=== PATIENT | male | born 1950 | race Caucasian/White ===

== ENCOUNTER 2023-08-29 14:42 | Emergency (ER) | payer MEDICARE, BC ==
[2023-08-29 15:03] VITALS: TEMP 97.7
[2023-08-29] MEDS ORDERED: PROTONIX 40 MG IV IV ONE (15:06)
[2023-08-29] MEDS ORDERED: Sodium Chloride 0.9% 1000 ML 1,000 ML ONE ×2 (15:06→17:47)
[2023-08-29] MEDS ORDERED: Zofran 4 MG/2 ML VIAL ONE (15:06)
[2023-08-29] MEDS: Zofran 4 MG/2 ML VIAL IV ONE (15:11)
[2023-08-29] MEDS: PROTONIX 40 MG IV IV ONE (15:11)
[2023-08-29] MEDS: Sodium Chloride 0.9% 1000 ML 1,000 ML IV STA ×2 (15:11→17:47)
--- NOTE | 2023-08-29 15:13 | ERPHSYRPT ---
- History of Present Illness Time Seen by Provider: 08/29/23 15:00 Historian: patient Exam Limitations: no limitations Patient Subjective Stated Complaint: C/O vomiting since 4am today. Denies pain or diarrhea. Triage Nursing Assessment: Patient ambulated back to ER without difficulties. Patient noted to have labored breathing. No cough. Face is flushed. JOYCE WNL. He is alert and oriented. Physician History: The patient presents with a sudden onset of nausea and vomiting, which started at 4 o'clock. He reports having dry heaves for about ten minutes initially, and since then, he has vomited seven times. The patient has not eaten since dinner and the vomitus mainly consists of sips of water and a little bit of norberto oliver he consumed. He also noticed white things in his vomit during the second to last episode, which he has not been able to identify. The patient reports feeling better when he takes a deep breath. He denies any chest pain. The patient has a history of prediabetes and is on medication for cholesterol. He has had surgeries for ventral hernias and appendectomy in the past. He denies any abdominal pain but reports feeling extremely nauseated. Allergies/Adverse Reactions: ampicillin Allergy (Verified 08/29/23 14:47) Home Medications: Atorvastatin Calcium 10 mg PO DAILY 08/29/23 [History] Vortioxetine Hydrobromide [Trintellix] 200 mg PO DAILY 08/29/23 [History] Hx Tetanus, Diphtheria Vaccination/Date Given: Yes Hx Influenza Vaccination/Date Given: Yes Hx Pneumococcal Vaccination/Date Given: Yes Immunizations Up to Date: Yes Travel Risk - International Travel Have you traveled outside of the country in past 3 weeks: No - Emerging Infectious Disease Are you exhibiting symptoms associated with any current EIDs: Yes Symptoms: Vomitting - Review of Systems All Other Systems: Reviewed and Negative - Past Medical History Pertinent Past Medical History: Yes Cardiac History: High Cholesterol GI Medical History: Hernia Psycho-Social History: Depression Other Medical History: skin CA - Past Surgical History Past Surgical History: Yes Gastrointestinal: Appendectomy, Hernia Repair Other Surgical History: right knee X 2 - Social History Smoking Status: Never smoker Exposure to second hand smoke: No Drug Use: marijuana - Social Determinants of Health Will the patient participate in the screening: Declined to provide - Nursing Vital Signs Nursing Vital Signs: Initial Vital Signs Pulse Rate 64 08/29/23 14:48 Respiratory Rate 21 08/29/23 14:48 Blood Pressure 162/78 08/29/23 14:48 O2 Sat by Pulse Oximetry 100 08/29/23 14:48 Pain Scale Pain Intensity 0 - Physical Exam General Appearance: mild distress Eye Exam: eyes nml inspection Ears, Nose, Throat Exam: normal ENT inspection Neck Exam: normal inspection, supple, full range of motion Respiratory Exam: normal breath sounds, lungs clear, other (labored breathing) Cardiovascular Exam: regular rate/rhythm, normal heart sounds, capillary refill <2 sec, No edema Gastrointestinal/Abdomen Exam: soft, normal bowel sounds, tenderness (LLQ), distention, No mass, No guarding, No rebound Neurologic Exam: alert, oriented x 3, cooperative Skin Exam: normal color, warm, diaphoresis SpO2 Interpretation: normal SpO2: 100 O2 Delivery: Room Air - Course Nursing assessment & vital signs reviewed: Yes EKG Interpreted by Me: RATE (58), Sinus Rhythm, NORMAL AXIS, NORMAL INTERVALS, prolonged QT interval (QT 450), NORMAL ST-T Ordered Tests: Active Orders 24 hr Category Date Time Status EKG-ER Only STAT Care 08/29/23 15:01 Active IV Insertion STAT Care 08/29/23 15:01 Active ABDOMEN AND PELVIS W CONTRAST [CT] Stat Exams 08/29/23 15:02 Completed CHEST 1 VIEW (PORTABLE) Stat Exams 08/29/23 15:03 Completed BLOOD CULTURE Stat Lab 08/29/23 16:04 Received CBC W DIFF Stat Lab 08/29/23 15:10 Completed CMP Stat Lab 08/29/23 15:10 Completed Erythrocyte Sedimentation Rate Stat Lab 08/29/23 15:10 Completed LIPASE Stat Lab 08/29/23 15:10 Completed Lactic Acid Stat Lab 08/29/23 15:01 Completed Lactic Acid Stat Lab 08/29/23 17:17 Completed OB-FECAL SCREEN Stat Lab 08/29/23 Ordered TROPONIN Q4H Lab 08/29/23 15:10 Completed TROPONIN Q4H Lab 08/29/23 17:50 Completed TROPONIN Q4H Lab 08/29/23 23:15 Ordered TSH, 3RD Generation Stat Lab 08/29/23 15:10 Completed UA W/RFX UR CULTURE Stat Lab 08/29/23 17:06 Completed VENOUS BLOOD GAS Stat Lab 08/29/23 17:52 Completed Medication Summary Generic Name Dose Route Start Last Admin Trade Name Jose PRN Reason Stop Dose Admin Sodium Chloride 1,000 mls @ 999 mls/hr 08/29/23 17:45 08/29/23 17:47 Sodium Chloride 0.9% 1000 Ml IV 08/29/23 18:45 999 mls/hr .Q1H1M STA Administration Discontinued Medications Generic Name Dose Route Start Last Admin Trade Name Jose PRN Reason Stop Dose Admin Droperidol 1.25 mg 08/29/23 15:48 08/29/23 15:51 Droperidol 5 Mg/2 Ml Vial IV 08/29/23 15:49 1.25 mg STAT ONE Administration Droperidol Confirm 08/29/23 15:49 Droperidol 5 Mg/2 Ml Vial Administered 08/29/23 15:50 Dose 5 mg .ROUTE .STK-MED ONE Sodium Chloride 1,000 mls @ 999 mls/hr 08/29/23 15:01 08/29/23 16:13 Sodium Chloride 0.9% 1000 Ml IV 08/29/23 16:01 Infused .Q1H1M STA Infusion Sodium Chloride Confirm 08/29/23 15:06 Sodium Chloride 0.9% 1000 Ml Administered 08/29/23 15:07 Dose 1,000 mls @ ud .ROUTE .STK-MED ONE Metronidazole 500 mg in 100 mls @ 200 mls/hr 08/29/23 15:04 08/29/23 16:25 Flagyl 500 Mg Ivpb IV 08/29/23 15:33 Infused STAT STA Infusion Levofloxacin/Dextrose 750 mg in 150 mls @ 100 mls/hr 08/29/23 15:06 08/29/23 17:25 Levofloxacin 750mg/150ml D5w IV 08/29/23 16:35 Infused STAT STA Infusion Metronidazole Confirm 08/29/23 15:42 Flagyl 500 Mg Ivpb Administered 08/29/23 15:43 Dose 500 mg in 100 mls @ ud IV .STK-MED ONE Levofloxacin/Dextrose Confirm 08/29/23 15:42 Levofloxacin 750mg/150ml D5w Administered 08/29/23 15:43 Dose 750 mg in 150 mls @ ud IV .STK-MED ONE Sodium Chloride Confirm 08/29/23 17:47 Sodium Chloride 0.9% 1000 Ml Administered 08/29/23 17:48 Dose 1,000 mls @ ud .ROUTE .STK-MED ONE Ondansetron HCl 4 mg 08/29/23 15:01 08/29/23 15:11 Ondansetron Hcl 4 Mg/2 Ml Vial IV 08/29/23 15:02 4 mg STAT ONE Administration Ondansetron HCl Confirm 08/29/23 15:06 Ondansetron Hcl 4 Mg/2 Ml Vial Administered 08/29/23 15:07 Dose 4 mg .ROUTE .STK-MED ONE Pantoprazole Sodium 40 mg 08/29/23 15:01 08/29/23 15:11 Pantoprazole 40 Mg Vial IV 08/29/23 15:02 40 mg STAT ONE Administration Pantoprazole Sodium Confirm 08/29/23 15:06 Pantoprazole 40 Mg Vial Administered 08/29/23 15:07 Dose 40 mg IV .STK-MED ONE Lab/Rad Data: Laboratory Result Diagrams 08/29/23 15:10 08/29/23 15:10 Laboratory Results 08/29/23 08/29/23 08/29/23 Range/Units 17:52 17:50 17:17 WBC (4.23-9.07) x10^3/uL RBC (4.63-6.08) x10^6/uL Hgb (13.7-17.5) g/dL Hct (40.1-51.0) % MCV (79.0-92.2) fL MCH (25.7-32.2) pg MCHC (32.3-36.5) g/dL RDW (11.6-14.4) % Plt Count (163-337) x10^3/uL MPV (9.4-12.4) fL Gran % (34.0-67.9) % Immature Gran % (Auto) (0.001-0.429) % Nucleat RBC Rel Count (0.00-0.2) % Eos # (Auto) (0.04-0.54) x10^3/uL Immature Gran # (Auto) (0.001-0.031) x10^3u/L Absolute Lymphs (auto) (1.32-3.57) x10^3/uL Absolute Monos (auto) (0.30-0.82) x10^3/uL Absolute Nucleated RBC (0.00-0.012) x10^3u/L Lymphocytes % (21.8-53.1) % Monocytes % (5.3-12.2) % Eosinophils % (0.8-7.0) % Basophils % (0.2-1.2) % Absolute Granulocytes (1.78-5.38) x10^3/uL Basophils # (0.01-0.08) x10^3/uL ESR (0-15) mm/hr pO2/FiO2 Ratio 21.0 % VBG pH 7.47 H (7.32-7.42) VBG pCO2 at Pat Temp 27 L (42-55) mm/Hg VBG pO2 at Pat Temp 62 H (25-40) mm/Hg VBG HCO3 19.7 L (22-28) meq/L VBG O2 Sat (Bianca) 92.0 L (95-100) VBG Base Excess -2.5 L (-2.0-2.0) VBG Hemoglobin 14.6 VBG Carboxyhemoglobin 2.2 (0.0-6.9) % T HGB POC Potassium 3.6 (3.5-5.1) Sodium (135-145) mmol/L Potassium (3.5-5.1) mmol/L Chloride (98-107) mmol/L Carbon Dioxide (22-30) mmol/L Anion Gap (5-15) MEQ/L BUN (9-20) mg/dL Creatinine (0.66-1.25) mg/dL Estimated GFR ML/MIN Glucose (74-106) mg/dL Hemoglobin A1c (4.5-6.0) % Lactic Acid 1.3 (0.4-2.0) Calcium (8.4-10.2) mg/dL Total Bilirubin (0.2-1.3) mg/dL AST (17-59) U/L ALT (0-50) U/L Alkaline Phosphatase (38-126) U/L Troponin I < 0.012 (0.000-0.033) ng/mL Serum Total Protein (6.3-8.2) g/dL Albumin (3.5-5.0) g/dL Lipase (23-300) U/L TSH 3rd Generation (0.470-4.680) mIU/L Urine Color (Yellow) Urine Appearance (Clear) Urine pH (4.6-8.0) Ur Specific [place] (1.005-1.030) Urine Protein (Negative) Urine Glucose (UA) (Negative) mg/dL Urine Ketones (Negative) Urine Blood (Negative) Urine Nitrite (Negative) Urine Bilirubin (Negative) Urine Urobilinogen (0.2) mg/dL Ur Leukocyte Esterase (Negative) U Hyaline Cast (Auto) (0-2) /LPF Urine Microscopic RBC (0-5) /HPF Urine Microscopic WBC (0-5) /HPF Ur Epithelial Cells (None Seen) /HPF Urine Bacteria (None Seen) /HPF Urine Culture Reflexed (NO) 08/29/23 08/29/23 08/29/23 Range/Units 17:06 15:10 15:10 WBC (4.23-9.07) x10^3/uL RBC (4.63-6.08) x10^6/uL Hgb (13.7-17.5) g/dL Hct (40.1-51.0) % MCV (79.0-92.2) fL MCH (25.7-32.2) pg MCHC (32.3-36.5) g/dL RDW (11.6-14.4) % Plt Count (163-337) x10^3/uL MPV (9.4-12.4) fL Gran % (34.0-67.9) % Immature Gran % (Auto) (0.001-0.429) % Nucleat RBC Rel Count (0.00-0.2) % Eos # (Auto) (0.04-0.54) x10^3/uL Immature Gran # (Auto) (0.001-0.031) x10^3u/L Absolute Lymphs (auto) (1.32-3.57) x10^3/uL Absolute Monos (auto) (0.30-0.82) x10^3/uL Absolute Nucleated RBC (0.00-0.012) x10^3u/L Lymphocytes % (21.8-53.1) % Monocytes % (5.3-12.2) % Eosinophils % (0.8-7.0) % Basophils % (0.2-1.2) % Absolute Granulocytes (1.78-5.38) x10^3/uL Basophils # (0.01-0.08) x10^3/uL ESR (0-15) mm/hr pO2/FiO2 Ratio % VBG pH (7.32-7.42) VBG pCO2 at Pat Temp (42-55) mm/Hg VBG pO2 at Pat Temp (25-40) mm/Hg VBG HCO3 (22-28) meq/L VBG O2 Sat (Bianca) (95-100) VBG Base Excess (-2.0-2.0) VBG Hemoglobin VBG Carboxyhemoglobin (0.0-6.9) % T HGB POC Potassium (3.5-5.1) Sodium (135-145) mmol/L Potassium (3.5-5.1) mmol/L Chloride (98-107) mmol/L Carbon Dioxide (22-30) mmol/L Anion Gap (5-15) MEQ/L BUN (9-20) mg/dL Creatinine (0.66-1.25) mg/dL Estimated GFR ML/MIN Glucose (74-106) mg/dL Hemoglobin A1c 5.87 (4.5-6.0) % Lactic Acid (0.4-2.0) Calcium (8.4-10.2) mg/dL Total Bilirubin (0.2-1.3) mg/dL AST (17-59) U/L ALT (0-50) U/L Alkaline Phosphatase (38-126) U/L Troponin I < 0.012 (0.000-0.033) ng/mL Serum Total Protein (6.3-8.2) g/dL Albumin (3.5-5.0) g/dL Lipase (23-300) U/L TSH 3rd Generation (0.470-4.680) mIU/L Urine Color Yellow (Yellow) Urine Appearance Clear (Clear) Urine pH 8.0 (4.6-8.0) Ur Specific [place] 1.020 (1.005-1.030) Urine Protein 30 (Negative) Urine Glucose (UA) Negative (Negative) mg/dL Urine Ketones 80 A (Negative) Urine Blood Negative (Negative) Urine Nitrite Negative (Negative) Urine Bilirubin Negative (Negative) Urine Urobilinogen 0.2 (0.2) mg/dL Ur Leukocyte Esterase Negative (Negative) U Hyaline Cast (Auto) NONE SEEN (0-2) /LPF Urine Microscopic RBC 0-2 (0-5) /HPF Urine Microscopic WBC 0-2 (0-5) /HPF Ur Epithelial Cells None Seen (None Seen) /HPF Urine Bacteria None Seen (None Seen) /HPF Urine Culture Reflexed NO (NO) 08/29/23 08/29/23 08/29/23 Range/Units 15:10 15:10 15:01 WBC 11.5 H (4.23-9.07) x10^3/uL RBC 4.70 (4.63-6.08) x10^6/uL Hgb 15.9 (13.7-17.5) g/dL Hct 44.5 (40.1-51.0) % MCV 94.7 H (79.0-92.2) fL MCH 33.8 H (25.7-32.2) pg MCHC 35.7 (32.3-36.5) g/dL RDW 12.5 (11.6-14.4) % Plt Count 236 (163-337) x10^3/uL MPV 11.4 (9.4-12.4) fL Gran % 90.6 H (34.0-67.9) % Immature Gran % (Auto) 0.3 (0.001-0.429) % Nucleat RBC Rel Count 0.0 (0.00-0.2) % Eos # (Auto) 0 L (0.04-0.54) x10^3/uL Immature Gran # (Auto) 0.03 (0.001-0.031) x10^3u/L Absolute Lymphs (auto) 0.65 L (1.32-3.57) x10^3/uL Absolute Monos (auto) 0.37 (0.30-0.82) x10^3/uL Absolute Nucleated RBC 0.00 (0.00-0.012) x10^3u/L Lymphocytes % 5.7 L (21.8-53.1) % Monocytes % 3.2 L (5.3-12.2) % Eosinophils % 0.0 L (0.8-7.0) % Basophils % 0.2 (0.2-1.2) % Absolute Granulocytes 10.39 H (1.78-5.38) x10^3/uL Basophils # 0.02 (0.01-0.08) x10^3/uL ESR 18 H (0-15) mm/hr pO2/FiO2 Ratio % VBG pH (7.32-7.42) VBG pCO2 at Pat Temp (42-55) mm/Hg VBG pO2 at Pat Temp (25-40) mm/Hg VBG HCO3 (22-28) meq/L VBG O2 Sat (Bianca) (95-100) VBG Base Excess (-2.0-2.0) VBG Hemoglobin VBG Carboxyhemoglobin (0.0-6.9) % T HGB POC Potassium (3.5-5.1) Sodium 140 (135-145) mmol/L Potassium 4.1 (3.5-5.1) mmol/L Chloride 108 H (98-107) mmol/L Carbon Dioxide 19 L (22-30) mmol/L Anion Gap 17.5 H (5-15) MEQ/L BUN 13 (9-20) mg/dL Creatinine 0.84 (0.66-1.25) mg/dL Estimated GFR 91.5 ML/MIN Glucose 146 H (74-106) mg/dL Hemoglobin A1c (4.5-6.0) % Lactic Acid 2.6 H (0.4-2.0) Calcium 10.0 (8.4-10.2) mg/dL Total Bilirubin 0.80 (0.2-1.3) mg/dL AST 35 (17-59) U/L ALT 30 (0-50) U/L Alkaline Phosphatase 102 (38-126) U/L Troponin I (0.000-0.033) ng/mL Serum Total Protein 8.0 (6.3-8.2) g/dL Albumin 4.7 (3.5-5.0) g/dL Lipase 108 (23-300) U/L TSH 3rd Generation 3.359 (0.470-4.680) mIU/L Urine Color (Yellow) Urine Appearance (Clear) Urine pH (4.6-8.0) Ur Specific [place] (1.005-1.030) Urine Protein (Negative) Urine Glucose (UA) (Negative) mg/dL Urine Ketones (Negative) Urine Blood (Negative) Urine Nitrite (Negative) Urine Bilirubin (Negative) Urine Urobilinogen (0.2) mg/dL Ur Leukocyte Esterase (Negative) U Hyaline Cast (Auto) (0-2) /LPF Urine Microscopic RBC (0-5) /HPF Urine Microscopic WBC (0-5) /HPF Ur Epithelial Cells (None Seen) /HPF Urine Bacteria (None Seen) /HPF Urine Culture Reflexed (NO) - Progress Progress: improved Progress Note: 08/29/23 15:21 Acute Nausea and Vomiting: Multiple episodes of vomiting since 4:00 PM, with dry heaves and white material in vomit. No associated chest pain or abdominal pain. No recent food intake. -Order comprehensive lab work. -Order CT scan of the abdomen. -Administer antiemetic medication. -Start Levofloxacin and Flagyl for empiric GI infection. Lactate elevated at 2.6, blood cx obtained. 08/29/23 18:43 Patient feeling significantly better after fluids, antibiotics and nausea medi cations. CT scan of the abdomen shows no significant findings. UA shows no evidence of UTI. Will continue outpatient antibiotic treatment with levofloxacin and Flagyl with Zofran as needed for nausea and vomiting. 08/29/23 18:45 Counseled pt/family regarding: lab results, diagnosis, need for follow-up, rad results Medical Desision Making - Diagnostic Testing Diagnostic test were ordered, analyzed, and reviewed by me: Yes Radiological Interpretation: Interpreted by me, Reviewed by me, Teleradiologist Report - Risk of complications The pt has a mod risk of morbidity or mortality based on: Need for prescription drug management - Departure Departure Disposition: Home Clinical Impression: Enterocolitis, Gastritis, Nausea and vomiting, Dehydration Condition: Good Critical Care Time: No Referrals: CHANTELL RAMIRES [COURTESY STAFF] - Follow up/PCP as directed Prescriptions: Metronidazole 500 mg [Flagyl 500 MG] 500 mg PO TID 7 Days #21 tablet levoFLOXacin [Levofloxacin] 750 mg PO DAILY 7 Days #7 tablet ondansetron HCL [Zofran] 8 mg PO Q6H PRN 5 Days #15 tablet PRN Reason: Nausea
[2023-08-29] MEDS ORDERED: FLAGYL 500 MG IVPB 500 MG/100 ML BAG IV ONE (15:42)
[2023-08-29] MEDS ORDERED: LEVOFLOXACIN 750MG/150ML D5W 750 MG/150 ML BAG IV ONE (15:42)
[2023-08-29] MEDS: FLAGYL 500 MG IVPB 500 MG/100 ML BAG IV STA (15:54)
[2023-08-29] MEDS: LEVOFLOXACIN 750MG/150ML D5W 750 MG/150 ML BAG IV STA (15:55)
[2023-08-29 16:04] LABS: Absolute Neutrophil Ct (ANC) 10.39 x10^3/uL (1.78-5.38); BASOPHIL % 0.2 % (0.2-1.2); Basophil (Absolute #) 0.02 x10^3/uL (0.01-0.08); Eosinophil (Absolute #) 0 x10^3/uL (0.04-0.54); Hematocrit 44.5 % (40.1-51.0); Hemoglobin 15.9 g/dL (13.7-17.5); IMMATURE GRAN # 0.03 x10^3u/L (0.001-0.031); IMMATURE GRAN % 0.3 % (0.001-0.429); Lymphocyte (Absolute #) 0.65 x10^3/uL (1.32-3.57); Lymphocytes % 5.7 % (21.8-53.1); Mean Cell Volume 94.7 fL (79.0-92.2); Mean Corpuscular Hemoglobin 33.8 pg (25.7-32.2); Mean Corpuscular Hgb Concent. 35.7 g/dL (32.3-36.5); Mean Platelet Volume 11.4 fL (9.4-12.4); Monocyte (Absolute #) 0.37 x10^3/uL (0.30-0.82); Monocytes % 3.2 % (5.3-12.2); Neutrophil % 90.6 % (34.0-67.9); Platelet Count 236 x10^3/uL (163-337); Red Cell Distribution Width 12.5 % (11.6-14.4); White Blood Count 11.5 x10^3/uL (4.23-9.07)
[2023-08-29 16:32] LABS: Erythrocyte Sedimentation Rate 18 mm/hr (0-15)
[2023-08-29 16:54] LABS: ALBUMIN 4.7 g/dL (3.5-5.0); ANION GAP 17.5 MEQ/L (5-15); BILIRUBIN,TOTAL 0.8 mg/dL (0.2-1.3); Creatinine 1 0.84 mg/dL (0.66-1.25); EST GLOMERULAR FILTRATION RATE 91.5 ML/MIN; Potassium 4.1 mmol/L (3.5-5.1); TSH, 3RD Generation 3.359 mIU/L (0.470-4.680)
[2023-08-29 17:38] LABS: Appearance Clear (Clear); Bacteria None Seen /HPF (None Seen); Bilirubin Negative (Negative); Blood Negative (Negative); Epithelial Cells None Seen /HPF (None Seen); Glucose, Urine Negative (Negative); Hyaline Casts NONE SEEN /LPF (0-2); Ketones 80 (Negative); Leukocyte Esterase Negative (Negative); Nitrite Negative (Negative); Protein,Urine Dip 30 (Negative); RBC 0-2 /HPF (0-5); Urobilinogen 0.2 mg/dL (0.2); WBC 0-2 /HPF (0-5)
[2023-08-29 17:39] LABS: ADD URINE CULTURE? NO (NO)
[2023-08-29 17:57] LABS: VBG BASE EXCESS -2.5 (-2.0-2.0); VBG CARBOXYHEMOGLOBIN 2.2 % T HGB (0.0-6.9); VBG HCO3- 19.7 meq/L (22-28); VBG HEMOGLOBIN 14.6; VBG POTASSIUM 3.6 (3.5-5.1); VBG pH 7.47 (7.32-7.42)
[2023-08-29 18:13] VITALS: RESP 18
--- NOTE | 2023-08-29 18:30 | XRAY ---
CLINICAL HISTORY: tachypnea COMPARISON: none TECHNIQUE: CR Chest PA view. FINDINGS: Bilateral accentuated broncho-vascular markings with prominent hilar vascular shadows. No sizable nodules, consolidation or masses. Both costophrenic angles are free. No sizable pleural effusion or thickening. Prominent aortic knob with mural calcification. Normal cardiac size and shape, normal aortic arch and no pericardial effusion. Unremarkable thoracic bony cage with no definite fractures detected. IMPRESSION: Bilateral accentuated broncho-vascular markings with prominent hilar vascular shadows. Electronically Signed by: Brooke Cui MD. (08/29/2023 18:26:16 EDT)
--- NOTE | 2023-08-29 18:40 | XRAY ---
CLINICAL HISTORY: abd pain COMPARISON: none. TECHNIQUE: CT scan of the abdomen and pelvis with the intravenous administration of 100 ml Omnipaque contrast as an IV contrast agent. One of the following dose reduction techniques was utilized for this exam.Automated exposure control, adjustment of the mA and/or kV according to patient size, and use of iterative reconstruction. FINDINGS: The liver is of average size, displaying regular contour and homogeneous low texture. No diffuse parenchymal changes or focal lesions could be detected. Normal hepatic vascular pattern is noted with no evidence of vascular distortion, thrombotic venous occlusion, or compromise of the hepatic biliary drainage. The spleen is of average size with no abnormal focal parenchymal attenuation or scar splenic collection few tiny dotes of calcification are noted. Both kidneys are of average size, shape and parenchymal thickness with no evidence of back pressure changes. Bilateral few small non-enhancing cortical renal cysts. Tiny right renal pelvis non-obstructing calculus noted. The other retroperitoneal structures including the pancreas, adrenal glands, and great vessels are grossly within normal limits. Dense mural calcification of the aorta and its main branches. Interposition of the colon between the liver and diaphragm. No significant lymph jennifer enlargement or ascetic fluid collection. The prostate is of average size and shape. Diffuse thickening of the urinary bladder wall with no stones, masses, or diverticula. The appendix is not confidently visualized. Bone window settings showed no evidence of fractures or destructive lesions. Lung window settings showed a normal appearance of both basal lung segments. IMPRESSION: 1. Fatty liver changes. 2. Interposition of the colon between the liver and diaphragm. 3. Few tiny splenic calcifications. 4. Tiny right renal pelvis non-obstructing calculus. 5. Bilateral few small non-enhancing cortical renal cysts. 6. Diffuse thickening of the urinary bladder wall? cystitis. Electronically Signed by: Brooke Cui MD. (08/29/2023 18:35:27 EDT)
[2023-08-29 18:42] VITALS: BP 114/63; PULSE 80
[2023-08-29 18:49] VITALS: O2SAT 100
== END 2023-08-29 19:03 | disposition home or self-care (01) ==
LOC: ED 14:42
DX: R11.2 Nausea with vomiting, unspecified (principal); K29.70 Gastritis, unspecified, without bleeding; E86.0 Dehydration
CPT/HCPCS: 36000; 36415; 71045; 74177; 80053; 81001; 82805; 83036; 83605; 83690; 84443; 84484; 85025; 85652; 87040; 93005; 96360; 96361; 96365; 96367; 96374; 96375; 99284; J1956; J2405